=== PATIENT | male | born 1985 | race African-American/Black ===

== ENCOUNTER 2022-01-15 15:56 | Emergency (ER) | payer SELFPAY ==
--- OUTSIDE RECORDS SUMMARY | 2022-01-15 15:58 | XMS REPORT | Continuity of Care Document ---
:1985 Author Organization [facility] t Address [address] [place] [address] Care Team Providers Name Role Phone PCP, DOES NOT HAVE A Primary Care Physician Unavailable WANDA CHINCHILLA Attending Clinician Unavailable CRIS Attending Clinician Unavailable Vaccine, Fam Attending Clinician Unavailable Genaro Heck DO Attending Clinician GENARO HECK Attending Clinician Unavailable TYLER COOPER Attending Clinician Unavailable MIKAELA HERNANDEZ Attending Clinician Unavailable CLARISSA DOBBS Attending Clinician Unavailable FAWAD PHIPPS Attending Clinician Unavailable BECKI Attending Clinician Unavailable KASSY Admitting Clinician Unavailable Payers Payer Name Policy Type Policy Number Effective Date Expiration Date S ource SELF-PAY CI [id number] Problems This patient has no known problems. Allergies, Adverse Reactions, Alerts Allergy Allergy Status Severity Reaction(s) Onset Inactive Treating Comm ents Source Name Type Date Date Clinician NO KNOWN Drug Active Univers ALLERGIE Class ity of [facility] Social History Social Habit Start Date Stop Date Quantity Comments Source Exposure to Not sure [facility] SARS-CoV-2 (event) Medica l Branch Sex Assigned At [birth year] [facility] 00:00:00 00:00:00 [facility] Branch Smoking Status Start Date Stop Date Source Unknown if ever smoked [facility] Medications This patient has no known medications. Immunizations Ordered Filled Immunization Date Status Comments [facility] e Immunization Name Name SARS-COV-2 COVID-19 2021-09-24 Completed Unive rsity of PFIZER HUNTER-SUCROSE 00:00:00 [place] [facility] (MAXWELL TOP) Branch SARS-COV-2 COVID-19 2021-09-03 Completed Unive rsity of PFIZER VACCINE 00:00:00 [facility] Branch SARS-COV-2 COVID-19 2021-09-03 Completed Unive rsity of PFIZER VACCINE 00:00:00 [facility] Procedures Procedure Date / Time Performed Performing Clinician Sourc e SARS-COV-2 COVID-19 2021-09-24 16:09:48 Doctor Unassigned, No [facility] [place] VACCINE 12 Name Medical Branch YRS+,0.3ML,IM (PFIZER - MAXWELL TOP) SARS-COV-2 COVID-19 2021-09-03 16:15:47 Doctor Unassigned, No [facility] [place] VACCINE,0.3ML,IM Name Medical Branch (PFIZER) Encounters Start End Encounter Admission Attending Care Care Encounter Source Date/Time Date/Time Type Type Clinicians Facility Department ID 2021-08-28 Outpatient IBNS IBNS [id number] Saad 12:28:45 [id number] Jam 2021-12-09 2021-12-09 Emergency E AMOR, MHSE MHSE [id number] 03:22:00 06:00:00 [facility] 2021-11-10 2021-11-10 Emergency E CRIS, MHSE [facility]SE [id number] 07:08:00 09:09:[facility] 2021-09-24 2021-09-24 Imm/Inj Vaccine, Dic Fam [facility] [id number] Univers 10:00:00 10:10:00 Visit Bronson Heck Genaro [facility] [id number] ity of FAMILY [id number] [facility] MEDICINE [id number] Med ical ERIC 044 Branch CLINIC 2021-09-24 2021-09-24 Outpatient R [facility] [id number] Univers 10:00:00 10:00:00 BRONSON rascon [facility] 2021-09-03 2021-09-03 Imm/Inj Vaccine, Dic Fam [facility] [id number] Univers 10:00:00 10:15:56 Visit VeroniqueBronson [facility] [id number] ity of FAMILY [id number] [facility] [id number] Med ical [place] [id number] Branch [facility] 2021-09-03 2021-09-03 Outpatient R [facility] [id number] Univers 10:00:00 10:00:00 BRONSON rascon [facility] 2021-05-25 2021-05-25 Emergency [id number] Memoria 18:58:00 23:32:00 WILMAN [facility] 2020-11-11 2020-11-11 Emergency [id number] 05:35:00 08:39:00 DAJUAN joseph [facility] 2020-09-15 2020-09-15 Emergency E [facility] 13:37[facility]00 15:26:00 l Timmy Jensen [facility] 2020-04-26 2020-04-26 Emergency [facility] [id number] FB 18:39:00 22:04:00 2019-08-13 2019-08-19 Inpatient [facility] [id number] [place] [address] 00:00:00 00:00:00 LETICIA Urrutia Method i st Results This patient has no known results.
[2022-01-15 16:31] LABS: Absolute Lymphocytes (CBC) 2.4 K/uL (0.7-4.9); Hematocrit 41.6 % (39.6-49.0); Lymphocytes % 40.5 % (15.3-44.8); MPV 8.1 fL (7.6-11.3); RBC Red Blood Cell Count 4.64 M/uL (4.33-5.43)
[2022-01-15 16:45] LABS: Magnesium 2.4 mg/dL (1.8-2.4); Potassium 3.9 mmol/L (3.5-5.1); Troponin High Sensitivity 5.4 pg/mL (<58.9)
--- NOTE | 2022-01-15 17:23 | RAD REPORT ---
EXAM DESCRIPTION: RAD - Chest Single View - 01/15/2022 4:59 pm CLINICAL HISTORY: SOB COMPARISON: No comparisons FINDINGS: Lines: None. Lungs: No evidence of edema or pneumonia. Calcified nodule right mid lung. Pleural: No significant pleural effusions or pneumothorax. Cardiac: The heart size is within normal limits. Bones: No acute fractures. Other: IMPRESSION: No acute cardiopulmonary disease.
--- NOTE | 2022-01-15 17:47 | EDPHYS ---
Physician Documentation [facility] Name: Aki Galicia Age: 36 yrs Sex: Male : 1985 Arrival Date: 01/15/2022 Time: 16:03 Bed 23 Private MD: ED Physician Felipe Bhagat HPI: 01/15 16:10 This 36 yrs old Male presents to ER via EMS with complaints of Shortness Of Breath. cp 16:10 The patient has shortness of breath at rest. cp 16:10 Onset: The symptoms/episode began/occurred this morning. Duration: The symptoms are cp continuous. Associated signs and symptoms: Pertinent negatives: chest pain, productive cough, diaphoresis, fever. Severity of symptoms: in the emergency department the symptoms have improved moderately. Historical: - Allergies: 16:06 No Known Allergies; bh1 - Home Meds: 16:06 None [Active]; bh1 - PMHx: 16:06 Asthma; bh1 - PSHx: 16:06 Appendectomy; bh1 - Immunization history:: Adult Immunizations up to date. - Social history:: Smoking status: Patient denies any tobacco usage or history of. ROS: 16:15 Constitutional: Negative for body aches, chills, fever, poor PO intake. cp 16:15 Eyes: Negative for injury, pain, redness, and discharge. cp Exam: 16:20 ECG was reviewed by the Attending Physician. cp Vital Signs: 16:04 BP 117 / 73; Pulse 74; Resp 18; Temp 99.3(O); Pulse Ox 99% on R/A; Weight 88.45 kg (R); bh1 Height 5 ft. 9 in. (175.26 cm) (R); Pain 0/10; 16:18 BP 118 / 73; Pulse 82; Resp 18; Pulse Ox 97% on R/A; bh1 17:06 BP 126 / 79; Pulse 74; Resp 18; Pulse Ox 98% on R/A; bh1 17:32 BP 123 / 82; Pulse 84; Resp 18; Pulse Ox 100% on R/A; bh1 17:58 BP 120 / 88; Pulse 68; Resp 18; Temp 98.3(O); Pulse Ox 100% on R/A; bh1 16:04 Body Mass Index 28.80 (88.45 kg, 175.26 cm) bh1 MDM: 16:05 Patient medically screened. yessenia 01/15 16:10 Order name: Basic Metabolic Panel; Complete Time: 17:06 cp 01/15 17:06 Interpretation: Normal except: CL 108. cp 01/15 16:10 Order name: CBC with Diff; Complete Time: 17:06 cp 01/15 17:06 Interpretation: Normal except: EOSINOPHIL % 9.5; EOSA 0.6. cp 01/15 16:10 Order name: Magnesium; Complete Time: 17:06 cp 01/15 16:10 Order name: NT PRO-BNP; Complete Time: 17:06 cp 01/15 17:06 Interpretation: Reviewed. cp 01/15 16:10 Order name: Troponin HS; Complete Time: 17:06 cp 01/15 17:10 Interpretation: Reviewed. cp 01/15 16:10 Order name: XRAY Chest (1 view); Complete Time: 17:25 cp 01/15 17:25 Interpretation: Report reviewed. cp 01/15 16:10 Order name: EKG; Complete Time: 16:11 cp 01/15 16:10 Order name: Cardiac monitoring; Complete Time: 16:10 cp 01/15 16:10 Order name: EKG - Nurse/Tech; Complete Time: 16:18 cp 01/15 16:10 Order name: IV Saline Lock; Complete Time: 16:10 01/15 16:10 Order name: Labs collected and sent; Complete Time: 16:18 cp 01/15 16:10 Order name: O2 Per Protocol; Complete Time: 16:10 01/15 16:10 Order name: O2 Sat Monitoring; Complete Time: 16:10 EC:20 Rate is 73 beats/min. Rhythm is regular. NE interval is normal. QRS interval is normal. cp QT interval is normal. T waves are Inverted in leads I, aVL. Interpreted by me. Reviewed by me. Administered Medications: No medications were administered Disposition Summary: 01/15/22 17:46 Discharge Ordered Location: Home cp Problem: an acute exacerbation cp Symptoms: have improved cp Condition: Stable cp Diagnosis - Unspecified asthma with (acute) exacerbation cp Followup: cp - With: Private Physician - When: 1 - 2 days - Reason: Recheck today's complaints Discharge Instructions: - Discharge Summary Sheet cp - Asthma, Adult cp Forms: - Medication Reconciliation Form cp - Thank You Letter cp - Antibiotic Education cp - Prescription Opioid Use cp Prescriptions: - albuterol sulfate 90 mcg/actuation Inhalation HFA aerosol inhaler - inhale 1 puff by INHALATION route every 4-6 hours; 1 Inhaler; Refills: 0, cp Product Selection Permitted - Prednisone 20 mg Oral Tablet - take 2 tablets by ORAL route once daily for 5 days; 10 tablet; Refills: 0, cp Product Selection Permitted Signatures: Dispatcher [employer] EDFelipe Marquis MD MD cha Page, Corey PA PA Negar Abraham RN RN bh1 Corrections: (The following items were deleted from the chart) 17:06 17:06 Normal except. cp cp
--- NOTE | 2022-01-15 17:47 | ER ---
Nurse's Notes [facility] Name: Aki Galicia Age: 36 yrs Sex: Male : 1985 Arrival Date: 01/15/2022 Time: 16:03 Bed 23 Private MD: Diagnosis: Unspecified asthma with (acute) exacerbation Presentation: 01/15 16:04 Chief complaint: Patient states: SHORT OF BREATH THIS AM. Coronavirus screen: Vaccine 1 status: Patient reports receiving the 2nd dose of the covid vaccine. Client denies travel out of the [place] in the last 14 days. difficulty breathing, At this time, the client does not indicate any symptoms associated with coronavirus-19. Ebola Screen: Patient negative for fever greater than or equal to 101.5 degrees Fahrenheit, and additional compatible Ebola Virus Disease symptoms. 16:04 Method Of Arrival: EMS: [place] [id number] 16:04 Initial Sepsis Screen: Does the patient meet any 2 criteria? No. Patient's initial [facility] sepsis screen is negative. Does the patient have a suspected source of infection?. 16:04 Risk Assessment: Do you want to hurt yourself or someone else? Patient reports no [facility] desire to harm self or others. Onset of symptoms was January 15, 2022. 16:04 Acuity: DESIRE 4 [facility] 16:12 Acuity: DESIRE 3 iw Triage Assessment: 16:06 General: Appears in no apparent distress. Behavior is calm, cooperative, appropriate [facility] for age. Pain: Denies pain. Respiratory: Reports shortness of breath since SINCE THIS MORNING AND IT HAS SINCE RESOLVED Onset: The symptoms/episode began/occurred gradually, the patient reports symptoms have resolved. Historical: - Allergies: 16:06 No Known Allergies; 1 - Home Meds: 16:06 None [Active]; 1 - PMHx: 16:06 Asthma; [facility] - PSHx: 16:06 Appendectomy; [facility] - Immunization history:: Adult Immunizations up to date. - Social history:: Smoking status: Patient denies any tobacco usage or history of. Screenin:07 Abuse screen: Denies threats or abuse. Nutritional screening: No deficits noted. [facility] Tuberculosis screening: No symptoms or risk factors identified. Fall Risk None identified. Assessment: 16:07 Reassessment: No changes from previously documented assessment. Cardiovascular: No bh1 deficits noted. Rhythm is regular. Cardiovascular: Rhythm is regular. Respiratory: Airway is patent Respiratory effort is even, unlabored, Breath sounds are clear bilaterally. Vital Signs: 16:04 BP 117 / 73; Pulse 74; Resp 18; Temp 99.3(O); Pulse Ox 99% on R/A; Weight 88.45 kg (R); bh1 Height 5 ft. 9 in. (175.26 cm) (R); Pain 0/10; 16:18 BP 118 / 73; Pulse 82; Resp 18; Pulse Ox 97% on R/A; bh1 17:06 BP 126 / 79; Pulse 74; Resp 18; Pulse Ox 98% on R/A; bh1 17:32 BP 123 / 82; Pulse 84; Resp 18; Pulse Ox 100% on R/A; bh1 17:58 BP 120 / 88; Pulse 68; Resp 18; Temp 98.3(O); Pulse Ox 100% on R/A; bh1 16:04 Body Mass Index 28.80 (88.45 kg, 175.26 cm) [facility] ED Course: 16:03 Patient arrived in ED. [facility] 16:04 Felipe Forde PA is PHCP. cp 16:04 Felipe Bhagat MD is Attending Physician. cp 16:04 Negar Bello, BARBER is Primary Nurse. [facility] 16:06 Triage completed. 1 16:06 Arm band placed on right wrist. 1 16:07 No apparent distress. Awaiting ED provider evaluation. 1 16:07 Patient has correct armband on for positive identification. Pulse ox on. NIBP on. 1 16:07 No provider procedures requiring assistance completed. Inserted saline lock: 18 gauge bh1 in right antecubital area, using aseptic technique. ,using aseptic technique. BY EMS STORE OPERATIONS MANAGER. 16:20 EKG done, by ED staff, reviewed by Felipe BOYLE. em1 17:01 XRAY Chest (1 view) In Process Unspecified. EDMS 17:06 No apparent distress. Awaiting lab results, Awaiting radiology results. 1 17:58 IV discontinued, intact, bleeding controlled. 1 Administered Medications: No medications were administered Medication: 16:07 VIS not applicable for this client. [facility] Outcome: 17:46 Discharge ordered by . cp 17:58 Discharged to home ambulatory. bh1 17:58 Condition: good 17:58 Discharge instructions given to patient, Instructed on discharge instructions, follow up and referral plans. medication usage, Demonstrated understanding of instructions, follow-up care, medications, Prescriptions given X 2. 17:59 Patient left the ED. [facility] Signatures: Dispatcher [employer] Luz Elena Mcneill RN RN iw Martinez, Eric 1 Felipe Forde PA PA cp Hicks, Barbara, RN RN [facility]
[2022-01-15 18:16] VITALS: O2SAT 100
[2022-01-15 18:18] VITALS: BP 120/88; TEMP 98.3
--- NOTE | 2022-01-16 07:19 | EKG ---
Test Date: 2022-01-15 Test Time: 16:14:06 Film Rental Clerk: ALF MEASUREMENT RESULTS: Intervals: Rate: 73 AR: 142 QRSD: 86 QT: 346 QTc: 381 [place]: P: 133 AR: 142 QRS: 104 T: 120 INTERPRETIVE STATEMENTS: Suspect arm lead reversal, interpretation assumes no reversal Unusual P axis, possible ectopic atrial rhythm Rightward axis Possible Inferior infarct, age undetermined Abnormal ECG No previous ECG available for comparison Electronically Signed On 01-16-22 07:17:19 CDT by Emmanuel Ron
== END 2022-01-15 17:59 | disposition home or self-care (01) ==
LOC: ER 15:56
DX: J45.901 Unspecified asthma with (acute) exacerbation (principal)
CPT/HCPCS: 36415; 71045; 80048; 83735; 83880; 84484; 85025; 93005